=== PATIENT | male | born 1965 | race Caucasian/White ===

== ENCOUNTER 2017-06-26 13:28 | Inpatient (IN) ==
[2017-06-26] MEDS ORDERED: Naloxone 0.4 MG/ML INJ IVP PRN (16:10)
[2017-06-26] MEDS ORDERED: *HR* Morphine 2 MG/ML SYRINGE IVP PRN (16:10)
[2017-06-26] MEDS ORDERED: Nitroglycerin 0.4 MG TAB.SUBL SL PRN (16:14)
--- NOTE | 2017-06-26 16:21 | Internal Med History&Physical ---
Date of Encounter: 06/26/17 Time of Encounter: 16:16 Assessment and Plan (1) Chest pain Current visit: No Status: Acute 52/[place] for ECHO and cardiology consult Extensive cardiac history. See below regarding previous cardiac workup Admit as inpatient. Cycle troponin. Aspirin/metoprolol/Lipitor Echocardiogram. We need her records from the [facility]. Please call cardiology consult after the [facility] records are arrived as per the request from the [facility] Qualifiers: Chest pain type: unspecified Qualified Code(s): R07.9 - Chest pain, unspecified (2) Coronary artery disease Current visit: No Status: Acute Patient is known to have a coronary artery disease. Patient had a first cardiac catheterization in 2013. This cardiac catheterization was done in the [facility]. Patient's pier hand is Dr. Watters. Patient claims that he had him multiple cardiac catheterization after that. I have informed JUHI Valiente to get more reports thrombose the [facility]. Qualifiers: Coronary Disease-Associated Artery/Lesion type: [place] artery [place] vs. transplanted heart: [place] heart Associated angina: with stable angina Qualified Code(s): I25.118 - Atherosclerotic heart disease of [place] coronary artery with other forms of angina pectoris (3) Hypertension Current visit: No Status: Acute Blood pressure is within acceptable range. Patient is presently on lisinopril 10 mg. Qualifiers: Hypertension type: essential hypertension Qualified Code(s): I10 - Essential (primary) hypertension (4) Hyperlipidemia Current visit: No Status: Acute Lipitor 40 mg We will check lipids tomorrow morning Qualifiers: Hyperlipidemia type: unspecified Qualified Code(s): E78.5 - Hyperlipidemia , unspecified (5) DVT prophylaxis Current visit: Yes Status: Acute [place] Medical decision making: This patient has a moderate to severe risk of worsening in spite of being on appropriate medication due to the underlying complex comorbid issues. Internal Medicine - H&P: HPI Chief complaint: chest pain Admitted From: Hospital to Hospital Transfer Plans for Post Hospital Care: Home History of present illness: PCP: GRAHAM Ramirez. Brief PMH: CAD, HITN, Previous Stents and Multiple caths from Dr Fatima from [facility] HPI: Patient was complaining of persistent pressure-like chest pain for last 2 weeks. In last 4 days his pain was getting worse and that was the reason he was evaluated by [facility]. Patient was admitted as inpatient and noted that his 3 troponins were negative. Patient was still complaining on going Chest pain and SOB on minimal exertion. In spite of patient being in patient's status in the [facility]'s he was still complaining of ongoing chest pain/ shortness of breath. The [facility] does not have a cardiology service and echocardiogram facility over the weekend. The hospitalist from [facility] called and asked for further care as they do not have appropriate specialities to cover this issue. reason for transfer: Ongoing chest pain in a patient who has a previous coronary artery disease with multiple stents. Family history: Noncontributory Past Med Surg Social Fam HX - Past Medical History Medical history: myocardial infarction Psychiatric history: no psych history - Past Surgical History Surgical History: angioplasty/stent - Social History Smoking Status: Never smoker Smokeless Tobacco Status: No Alcohol use: none Drug use: none Internal Medicine - H&P: Meds Atorvastatin [Lipitor] 40 mg PO QAM 02/20/15 [History] Clopidogrel [Plavix] 75 mg PO QAM 02/20/15 [History] Cyclobenzaprine [Flexeril] 5 mg PO TID 02/20/15 [History] Isosorbide MONOnitrate (24 HR) [Imdur] 30 mg PO QAM 02/20/15 [History] Lisinopril [Zestril] 10 mg PO QPM 02/20/15 [History] Meclizine [Antivert] 12.5 mg PO TID 02/20/15 [History] Metoprolol [Lopressor] 37.5 mg PO BID 02/20/15 [History] Fluticasone Propionate Nasal [Flonase] 2 spray NS DAILY #1 bottle 02/21/15 [Rx] Lansoprazole [Prevacid] 30 mg PO QAM #30 capsule. 02/21/15 [Rx] Nitroglycerin 0.4 mg SL Q5MIN PRN #20 tab.subl 02/21/15 [Rx] 3 Allergy/AdvReac Type Severity Reaction Status Date / Time No Known Allergies Allergy Verified 02/20/15 16:22 All Systems PM: A 10-system review of systems was performed and is negative for pertinent findings except as documented above in the HPI. - Constitutional Constitutional: no chills, no fever(s), no night sweats - EENT Eyes: no change in vision, no discharge, no pain, no photophobia Ears: no ear discharge, no ear pain, no tinnitus Nose, mouth and throat: no dysphagia, no nasal discharge, no neck pain, no sore throat - Cardiovascular Cardiovascular ROS IM: chest pain, diaphoresis, palpitations, no dyspnea, no lightheadedness, no syncope - Respiratory Respiratory: no cough, no dyspnea, no wheezing, no excessive phlegm production - Gastrointestinal Gastrointestinal: no abdominal pain, no diarrhea, no hematemesis, no hematochezia, no melena, no nausea, no vomiting - Musculoskeletal Musculoskeletal ROS IM: no numbness, no tingling - Integumentary Integumentary IM: no rash, no unusual bruising - Neurological Neurological ROS: no confusion, no convulsions, no focal weakness, no numbness, no tingling, no tremor(s) - Hematologic/Lymphatic Hematologic/Lymphatic: no easy bruising - Constitutional Vitals: Temp Pulse Resp BP Pulse Ox 97.8 F 76 16 120/77 92 06/26/17 14:46 06/26/17 14:46 06/26/17 14:46 06/26/17 14:46 06/26/17 14:46 General appearance: Present: A&O X 3, pleasant, no acute distress, answers questions appropriately - Head Head exam: Present: atraumatic, normocephalic - Eye Eye exam: Present: PERRL, conjuntiva pink, sclera anicteric Pupils: Present: PERRL - Neck Neck exam general surgery: Present: supple, trachea midline. Absent: lymphadenopathy - Respiratory Respiratory exam: Present: CTAB. Absent: accessory muscle use, rales, rhonchi, wheezes - Cardiovascular Cardiovascular exam: Present: RRR, +S1, +S2. Absent: diastolic murmur, gallop, rubs, systolic murmur - GI/Abdominal GI/Abdominal exam: Present: normal bowel sounds, soft, no peritoneal signs. Absent: distended, tenderness - Extremities Exam Extremities exam: Present: warm, radial pulses palpable and symmetrical. Absent : calf tenderness, cyanotic, pedal edema - Neurological Exam Neurological exam: Present: CN II-XII intact, oriented X3, no focal deficits. Absent: pronater drift, facial droop, speech deficit - Skin Skin exam: Present: dry, intact
[2017-06-26 16:46] LABS: Basophils # 0.1 K/mcL (0.0-0.2); Basophils % 0.6 %; Eosinophils # 0.1 K/mcL (0.0-0.6); Eosinophils % 0.8 %; Hematocrit 39.2 % (37.5-50.1); Hemoglobin 13.3 g/dL (12.9-16.9); Immature Granulocytes % 0.5 % (0-4); Lymphocytes # 2.5 K/mcL (0.6-4.6); Lymphocytes % 29.3 %; Mean Corpuscular HGB Conc 33.9 g/dL (31.6-35.5); Mean Corpuscular Hemoglobin 31.7 pg (28.0-33.3); Mean Corpuscular Volume 93.6 fL (83.0-100.0); Mean Platelet Volume 11.6 fL (9.4-12.4); Monocytes # 0.6 K/mcL (0.0-1.3); Monocytes % 6.8 %; Neutrophils # 5.2 K/mcL (1.6-8.9); Platelet Count 175 K/mcL (140-400); Red Blood Count 4.19 M/mcL (4.19-5.50); Red Cell Distribution Width 12.6 % (11.5-14.5)
[2017-06-26 17:01] LABS: Alanine Aminotransferase 31 Units/L (7-52); Albumin/Globulin Ratio 1.5 (1.1-2.2); Alkaline Phosphatase 87 Units/L (34-104); Aspartate Amino Transferase 21 Units/L (13-39); BUN/Creatinine Ratio 18 (6-26); Bilirubin,Total 0.7 mg/dL (0.3-1.0); Blood Urea Nitrogen 17 mg/dL (6-20); Calcium 9.4 mg/dL (8.6-10.3); Carbon Dioxide 31 mEq/L (23-29); Chloride 105 mEq/L (98-107); Globulin 2.6 g/dL (2.4-3.5); Glucose 108 mg/dL (70-105); Osmolality,Calculated 292 (280-300); Sodium 140 mEq/L (136-145); Total Protein 6.6 g/dL (6.4-8.9); eGFR For African Americans > 60 (> 60); eGFR For Non-African Americans > 60 (> 60)
[2017-06-26] MEDS: Isosorbide MONOnitrate (24 HR) 30 MG TAB.ER.24H PO SCH (17:25)
[2017-06-26] MEDS: Lisinopril 20 MG TABLET PO SCH (17:26)
[2017-06-26] MEDS: Acetaminophen 325 MG TABLET PO PRN (23:16)
[2017-06-26] MEDS: *HR* Heparin 5,000 UNIT/ML VIAL SQ SCH (23:17)
[2017-06-27 05:50] LABS: Basophils % 0.5 %; Eosinophils % 0.4 %; Hematocrit 41.8 % (37.5-50.1); Hemoglobin 14.1 g/dL (12.9-16.9); Immature Granulocytes % 0.5 % (0-4); Lymphocytes # 0.7 K/mcL (0.6-4.6); Lymphocytes % 7.7 %; Mean Corpuscular HGB Conc 33.7 g/dL (31.6-35.5); Mean Corpuscular Hemoglobin 31.3 pg (28.0-33.3); Mean Corpuscular Volume 92.9 fL (83.0-100.0); Mean Platelet Volume 11.9 fL (9.4-12.4); Monocytes # 0.4 K/mcL (0.0-1.3); Monocytes % 4.6 %; Neutrophils # 7.3 K/mcL (1.6-8.9); Platelet Count 149 K/mcL (140-400); Red Cell Distribution Width 12.3 % (11.5-14.5); Segmented Neutrophils % 86.3 %
[2017-06-27 05:53] LABS: INR 1.1; Prothrombin Time 12.3 Seconds (9.4-12.1)
[2017-06-27 06:04] LABS: Alanine Aminotransferase 30 Units/L (7-52); Albumin/Globulin Ratio 1.5 (1.1-2.2); Alkaline Phosphatase 87 Units/L (34-104); Aspartate Amino Transferase 18 Units/L (13-39); BUN/Creatinine Ratio 16 (6-26); Bilirubin,Total 1.4 mg/dL (0.3-1.0); Blood Urea Nitrogen 16 mg/dL (6-20); Calcium 9.2 mg/dL (8.6-10.3); Carbon Dioxide 30 mEq/L (23-29); Chloride 103 mEq/L (98-107); Chol/HDL Ratio 3.3 (0-4.9); Cholesterol 163 mg/dL (< 200); Globulin 2.6 g/dL (2.4-3.5); Glucose 101 mg/dL (70-105); HDL Cholesterol 49 mg/dL (40-59); LDL Cholesterol,Calculated 88 mg/dL (0-99); Magnesium 1.7 mg/dL (1.6-2.6); Osmolality,Calculated 295 (280-300); Phosphorous 3.2 mg/dL (2.7-4.5); Potassium 4.2 mEq/L (3.5-5.1); Sodium 142 mEq/L (136-145); Total Protein 6.6 g/dL (6.4-8.9); Triglycerides 132 mg/dL (< 150); eGFR For African Americans > 60 (> 60); eGFR For Non-African Americans > 60 (> 60)
[2017-06-27] MEDS: *HR* Heparin 5,000 UNIT/ML VIAL SQ SCH ×2 (08:38→15:20)
[2017-06-27] MEDS: Acetaminophen 325 MG TABLET PO PRN ×3 (08:39→21:34)
[2017-06-27] MEDS: Isosorbide MONOnitrate (24 HR) 30 MG TAB.ER.24H PO SCH (08:41)
[2017-06-27 10:09] LABS: Adenovirus Not Detected (Not Detect); Coronavirus 229E Not Detected (Not Detect); Coronavirus HKU1 Not Detected (Not Detect); Coronavirus NL63 Not Detected (Not Detect)
[2017-06-27 10:10] LABS: Bordetella Pertussis Not Detected (Not Detect); Chlamydophila pneumoniae Not Detected (Not Detect); Coronavirus OC43 Not Detected (Not Detect); Human Metapneumovirus Not Detected (Not Detect); Human Rhinovirus/Enterovirus Not Detected (Not Detect); Influenza A Subtype 2009 H1 Not Detected (Not Detect); Influenza A Untypeable Not Detected (Not Detect); Influenza B Not Detected (Not Detect); Mycoplasma pneumoniae Not Detected (Not Detect); Parainfluenza Virus 1 Not Detected (Not Detect); Parainfluenza Virus 2 Not Detected (Not Detect); Parainfluenza Virus 3 Not Detected (Not Detect); Parainfluenza Virus 4 Not Detected (Not Detect); Respiratory Syncytial Virus Not Detected (Not Detect)
[2017-06-27] MEDS ORDERED: Ondansetron 4 MG/2 ML VIAL IVP PRN ×2 (14:37→15:02)
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
[2017-06-27] MEDS: Lisinopril 20 MG TABLET PO SCH (17:55)
[2017-06-27] MEDS ORDERED: Ondansetron 4 MG/2 ML VIAL IVP SCH (18:00)
[2017-06-28] MEDS: *HR* Heparin 5,000 UNIT/ML VIAL SQ SCH ×4 (00:22→23:29)
[2017-06-28 05:11] LABS: Basophils % 0.8 %; Eosinophils % 0.6 %; Hematocrit 43.1 % (37.5-50.1); Hemoglobin 14.3 g/dL (12.9-16.9); Immature Granulocytes % 0.6 % (0-4); Lymphocytes # 0.9 K/mcL (0.6-4.6); Mean Corpuscular HGB Conc 33.2 g/dL (31.6-35.5); Mean Corpuscular Hemoglobin 30.9 pg (28.0-33.3); Mean Corpuscular Volume 93.1 fL (83.0-100.0); Mean Platelet Volume 10.8 fL (9.4-12.4); Monocytes # 0.6 K/mcL (0.0-1.3); Monocytes % 11.9 %; Neutrophils # 3.3 K/mcL (1.6-8.9); Platelet Count 132 K/mcL (140-400); Red Blood Count 4.63 M/mcL (4.19-5.50); Red Cell Distribution Width 12.7 % (11.5-14.5); Segmented Neutrophils % 68.1 %
[2017-06-28 05:24] LABS: BUN/Creatinine Ratio 12 (6-26); Blood Urea Nitrogen 15 mg/dL (6-20); Calcium 9.1 mg/dL (8.6-10.3); Carbon Dioxide 32 mEq/L (23-29); Chloride 101 mEq/L (98-107); Glucose 132 mg/dL (70-105); Osmolality,Calculated 289 (280-300); Potassium 4.5 mEq/L (3.5-5.1); Sodium 138 mEq/L (136-145); eGFR For African Americans > 60 (> 60); eGFR For Non-African Americans > 60 (> 60)
[2017-06-28] MEDS ORDERED: Regadenoson 0.4 MG/5 ML SYRINGE IVP ONE (06:04)
[2017-06-28] MEDS: Isosorbide MONOnitrate (24 HR) 30 MG TAB.ER.24H PO SCH (09:14)
[2017-06-28] MEDS: Acetaminophen 325 MG TABLET PO PRN ×2 (12:04→20:21)
--- NOTE | 2017-06-28 13:39 | Cardiology Consult Note ---
Date of Encounter: 06/28/17 Time of Encounter: 13:00 Assessment and Plan (1) Chest pain Current Visit: No Status: Acute Per cardiology: -Patient reports intermittent typically non-exertional chest pain. States pain different from previous DE. -Denies current chest pain. -Troponins negative x3 [facility] and negative x3[facility]. -KNown history of CAD. States on previous LHC there was a blockage that was not amendable to PCI, does not know which artery. -ALso reports increased shortness of breath. -TTE with LVEF 55%, no segmental wall motion abnormalities. -Stress today with area of previous infarct noted in basal-mid inferior wall. No evidence of ischemia noted. -Awaiting records from [facility]. -Will increase imdur. Qualifiers: Chest pain type: unspecified Qualified Code(s): R07.9 - Chest pain, unspecified (2) Coronary artery disease Current Visit: No Status: Chronic Per cardiology: -Known history of CAD. -Previous LHC at [facility], awaiting records. -ON statin, beta brian, and plavix. -Awaiting records from [facility]. -Will start asa. Qualifiers: Coronary Disease-Associated Artery/Lesion type: [place] artery [place] vs. transplanted heart: [place] heart Associated angina: with unspecified angina Qualified Code(s): I25.119 - Atherosclerotic heart disease of [place] coronary artery with unspecified angina pectoris Discussion w patient/family: The assessment and plan as outlined above was discussed with the patient and/or family members who expressed understanding and agreement. All questions were answered. Thank you for involving us in the care of your patient. Please call with any questions. Discussed and reviewed with . History of Present Illness Consult date: 06/28/17 Requesting physician: Judy Abad Consult reason: chest pain, history of CAD Chief complaint: chest pain, shortness of breath History of present illness: Mr. Najera is a 52 year old male with a relevant past medical history of DE, CAD s/p multiple PCI, HTN, hyperlipidemia. Patient presented to [facility] for worsening shortness of breath and chest pain. Patient was transferred to [facility]. Patient states for the past couple of months he has noticed intermittent shortness of breath with exertion. Patient also states he has had chest pain that typically occurs at rest, however has occurred with exertion. Patient denies aggravating or alleviating factors. Patient states that prior to his first DE, he had noticed increased shortness of breath. Patient states current chest pain is different that previous chest pain. Patient is unsure where stents were placed. Also, patient reports that during his last LHC, there was an area that was not amedable to PCI. Patient denies current chest pain. States breathing is ok right now, comfortable on room air. Of note, patient does report fever and chills yesterday, denies today. Past Med Surg Social Fam HX - Past Medical History Attestation: Yes The following information was validated with the patient. Source: patient, obtained from family Medical history: hyperlipidemia, hypertension, myocardial infarction Psychiatric history: no psych history - Past Surgical History Surgical History: angioplasty/stent - Social History Smoking Status: Never smoker Smokeless Tobacco Status: No Alcohol use: none Drug use: none - Family History Mother Living Status: Hx Family Endocrine Disorder: Yes (DM) Father Living Status: Still Living Hx Family Cardiac Disorders: Yes (DE) Hx Family Cancer: Yes (prostate, lung, melanoma) Medications and Allergies Atorvastatin [Lipitor] 40 mg PO QAM 02/20/15 [History] Isosorbide MONOnitrate (24 HR) [Imdur] 30 mg PO QAM 02/20/15 [History] Lisinopril [Zestril] 10 mg PO QPM 02/20/15 [History] Meclizine [Antivert] 12.5 mg PO TID 02/20/15 [History] Metoprolol [Lopressor] 37.5 mg PO BID 02/20/15 [History] Fluticasone Propionate Nasal [Flonase] 2 spray NS DAILY #1 bottle 02/21/15 [Rx] Lansoprazole [Prevacid] 30 mg PO QAM #30 capsule.dr 02/21/15 [Rx] Nitroglycerin 0.4 mg SL Q5MIN PRN #20 tab.subl 02/21/15 [Rx] 3 Allergy/AdvReac Type Severity Reaction Status Date / Time No Known Allergies Allergy Verified 02/20/15 16:22 All Systems Review: A 10-system review of systems was performed and is negative for pertinent findings except as documented above in the HPI. - Cardiovascular Cardiovascular: as per HPI, chest pain at rest, dyspnea on exertion Physical Examination Vital Signs, Last 4 Hours Temp Pulse Resp BP Pulse Ox 06/28/17 10:55 98.4 F 85 20 109/70 96 General: Conversant, No Apparent Distress HEENT: Atraumatic, Normocephaly, Mucus Membranes Moist Neck: No JVD, Normal carotid pulses Cardiac: Reg Rate and Rhythm, Normal S1 and S2, No Murmur Lungs: Normal Breath Sounds, No Wheeze, Rales, Rhonchi Neuro: Alert and responsive, No focal deficits noted Abdomen: Soft, Non-Tender Skin: No rashes noted on visualized skin Musculoskeletal: No Chest Wall Tenderness Extremities: No Clubbing, No Cyanosis, No Edema, Normal Pulses Results 06/28/17 04:52 06/28/17 04:52 Lab Results Active Medications Acetaminophen (Tylenol) 650 mg PO Q6HR PRN PRN Reason: Headache Stop: 12/26/17 22:13 Last Admin: 06/28/17 12:04 Dose: 650 mg Atorvastatin Calcium (Lipitor) 40 mg PO [facility] Stop: 12/27/17 09:01 Last Admin: 06/28/17 09:15 Dose: 40 mg Clopidogrel [facility]) [facility] Stop: 12/27/17 09:01 Last Admin: 06/28/17 09:14 Dose: 75 mg Cyclobenzaprine HCl (Flexeril) 5 mg PO TID [facility] Stop: 12/26/17 21:01 Last Admin: 06/28/17 09:15 Dose: 5 mg Heparin Sodium (Porcine) (Heparin) 5,000 unit SQ Q8HR [facility] Stop: 12/27/17 00:01 Last Admin: 06/28/17 09:15 Dose: 5,000 unit Isosorbide Mononitrate (Imdur) [facility] Stop: 12/26/17 16:16 Last Admin: 06/28/17 09:14 Dose: 30 mg Lansoprazole (Prevacid) [facility] PRN Reason: Protocol Stop: 12/26/17 16:16 Last Admin: 06/28/17 09:15 Dose: 30 mg Lisinopril (Zestril) 10 mg PO QPM [facility] PRN Reason: Protocol Stop: 12/26/17 18:01 Last Admin: 06/27/17 17:55 Dose: 10 mg Meclizine HCl (Antivert) 12.5 mg PO TID [facility] Stop: 12/26/17 21:01 Last Admin: 06/28/17 09:14 Dose: 12.5 mg Metoprolol Tartrate (Lopressor) 37.5 mg PO BID NOE Stop: 12/26/17 21:01 Last Admin: 06/28/17 09:14 Dose: 37.5 mg Morphine Sulfate (Morphine Sulfate) 2 mg IVP Q4HR PRN PRN Reason: Severe Pain (7-10) Stop: 12/26/17 16:11 Naloxone HCl (Narcan) 0.4 mg IVP Q2MIN PRN PRN Reason: Opioid Reversal Stop: 12/26/17 16:11 Nitroglycerin (Nitroglycerin) 0.4 mg SL Q5MIN PRN PRN Reason: Chest Pain Stop: 12/26/17 16:15 Ondansetron HCl (Zofran) 4 mg IVP Q6HR PRN; Protocol PRN Reason: Nausea Stop: 12/27/17 18:01 Last Admin: 06/27/17 15:20 Dose: 4 mg Laboratory Tests 06/26/17 06/26/17 06/27/17 16:23 21:48 04:18 Hgb Creatinine Troponin I < 0.03 < 0.03 < 0.03 06/28/17 06/28/17 04:52 04:52 Hgb 14.3 Creatinine 1.24 Troponin I - Imaging and Cardiology Chest Xray: report reviewed Stress Test: report reviewed Echo: report reviewed - EKG Interpretation EKG results cardiology: personally reviewed (ECG with SR, HR 69.), other ( Telemetry reviewed with average HR previous 12 hours noted to be 74, SR. PVCs noted.) Consult Discharge Plan - Plan [facility]errals: [facility] [Primary Care Provider] -
[2017-06-28] MEDS: Aspirin Enteric Coated 81 MG Tablet PO SCH (15:17)
[2017-06-28] MEDS: Lisinopril 20 MG TABLET PO SCH (17:37)
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
[2017-06-29 04:19] LABS: Basophils % 0.8 %; Eosinophils # 0.1 K/mcL (0.0-0.6); Eosinophils % 2.2 %; Hematocrit 40.6 % (37.5-50.1); Hemoglobin 13.7 g/dL (12.9-16.9); Immature Granulocytes % 0.5 % (0-4); Lymphocytes # 1.1 K/mcL (0.6-4.6); Lymphocytes % 30.7 %; Mean Corpuscular HGB Conc 33.7 g/dL (31.6-35.5); Mean Corpuscular Hemoglobin 31.3 pg (28.0-33.3); Mean Corpuscular Volume 92.7 fL (83.0-100.0); Mean Platelet Volume 11.4 fL (9.4-12.4); Monocytes # 0.6 K/mcL (0.0-1.3); Monocytes % 15.2 %; Neutrophils # 1.9 K/mcL (1.6-8.9); Platelet Count 128 K/mcL (140-400); Red Blood Count 4.38 M/mcL (4.19-5.50); Red Cell Distribution Width 12.5 % (11.5-14.5); Segmented Neutrophils % 50.6 %
[2017-06-29 04:48] LABS: BUN/Creatinine Ratio 13 (6-26); Blood Urea Nitrogen 14 mg/dL (6-20); Calcium 8.9 mg/dL (8.6-10.3); Carbon Dioxide 33 mEq/L (23-29); Chloride 103 mEq/L (98-107); Glucose 132 mg/dL (70-105); Osmolality,Calculated 292 (280-300); Potassium 4.2 mEq/L (3.5-5.1); Sodium 140 mEq/L (136-145); eGFR For African Americans > 60 (> 60); eGFR For Non-African Americans > 60 (> 60)
[2017-06-29 07:30] VITALS: BP 118/83
[2017-06-29] MEDS: Aspirin Enteric Coated 81 MG Tablet PO SCH (08:48)
[2017-06-29] MEDS: *HR* Heparin 5,000 UNIT/ML VIAL SQ SCH (08:48)
[2017-06-29] MEDS ORDERED: Isosorbide MONOnitrate (24 HR) 60 MG TAB.ER.24H PO SCH (09:00)
--- NOTE | 2017-06-29 10:03 | Discharge Summary ---
Date of Encounter: 06/29/17 Time of Encounter: 09:59 - Discharge Diagnosis (1) Chest pain Priority: Primary Status: Acute Qualifiers: Chest pain type: unspecified Qualified Code(s): R07.9 - Chest pain, unspecified (2) Coronary artery disease Priority: Secondary Status: Chronic Qualifiers: Coronary Disease-Associated Artery/Lesion type: [place] artery [place] vs. transplanted heart: [place] heart Associated angina: with unspecified angina Qualified Code(s): I25.119 - Atherosclerotic heart disease of [place] coronary artery with unspecified angina pectoris (3) Hypertension Priority: Secondary Status: Acute Qualifiers: Hypertension type: essential hypertension Qualified Code(s): I10 - Essential (primary) hypertension (4) Hyperlipidemia Priority: Secondary Status: Acute Qualifiers: Hyperlipidemia type: unspecified Qualified Code(s): E78.5 - Hyperlipidemia , unspecified (5) DVT prophylaxis Priority: Secondary Status: Acute - Discharge Medications Prescriptions: Aspirin Enteric Coated [Aspirin EC] 81 mg PO DAILY #30 tablet. Clopidogrel [Plavix] 75 mg PO QAM #30 tablet Isosorbide MONOnitrate (24 HR) [Imdur] 60 mg PO DAILY #30 tab.er.24h Home Medications: Atorvastatin [Lipitor] 40 mg PO QAM 02/20/15 [History] Lisinopril [Zestril] 10 mg PO QPM 02/20/15 [History] Meclizine [Antivert] 12.5 mg PO TID 02/20/15 [History] Metoprolol [Lopressor] 37.5 mg PO BID 02/20/15 [History] Fluticasone Propionate Nasal [Flonase] 2 spray NS DAILY #1 bottle 02/21/15 [Rx] Lansoprazole [Prevacid] 30 mg PO QAM #30 capsule. 02/21/15 [Rx] Nitroglycerin 0.4 mg SL Q5MIN PRN #20 tab.subl 02/21/15 [Rx] Aspirin Enteric Coated [Aspirin EC] 81 mg PO DAILY #30 tablet. 06/29/17 [Rx] Clopidogrel [Plavix] 75 mg PO QAM #30 tablet 06/29/17 [Rx] Cyclobenzaprine [Flexeril] 10 mg PO TID tablet 06/29/17 [Rx] Isosorbide MONOnitrate (24 HR) [Imdur] 60 mg PO DAILY #30 tab.er.24h 06/29/17 [ Rx] Allergies/Adverse Reactions: 3 Allergy/AdvReac Type Severity Reaction Status Date / Time No Known Allergies Allergy Verified 02/20/15 16:22 Procedures/tests Complete & Pending: Procedures Performed prior 72 hours Category Date Time Status NM jacquelyn perf SPECT multi [NM] Routine Exams 06/27/17 12:22 Taken EV echocardiogram Routine Y 06/26/17 16:13 Completed SP pharm nuclear stress Routine Y 06/28/17 07:30 Completed Date of admission: 06/26/17 17:14 Primary care physician: PCP [place] Consults: 06/28/17 10:41 Consult to Cardiology [CONS] Routine Comment: Consulting Provider: Cardiology Ariana Reason for Consult: Chest pain, CAD, multiple heart cath in past. 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 In last 4 days his pain was getting worse and that was the reason he was evaluated by Ashley STEVENSON. Patient was admitted as inpatient and noted that his 3 troponins were negative. Patient was still complaining on going Chest pain and SOB on minimal exertion. In spite of patient being in patient's status in the [facility]'s he was still complaining of ongoing chest pain/ shortness of breath. The [facility] does not have a cardiology service and echocardiogram facility over the weekend. The hospitalist from [facility] called and asked for further care as they do not have appropriate specialities to cover this issue. Reason for transfer: Ongoing chest pain in a patient who has a previous coronary artery disease with multiple stents. Patient was admitted for further workup. Cycled troponin were negative, EKG unreamarkable. TTE showed normal LVEF, normal structure and function. Patient had nuclear stress test done that was negative for ischemia. Did note an show infarct of basal-mid inferior wall on impression. Cardiology was consulted. He had aspirin added to his current Plavix home medications. Also had is home Imdur increased from 30 mg daily to 60 mg daily. Patient remained without chest pain during his stay. Cycled cardiac enzymes were negative. He was discharged home in stable condition. - Time Spent with Patient Total time spent providing and/or coordinating discharge services: - Constitutional Vitals: Temp Pulse Resp BP Pulse Ox 98.2 F 77 15 118/83 95 06/29/17 07:29 06/29/17 07:29 06/29/17 07:29 06/29/17 07:29 06/29/17 07:29 General appearance: Present: A&O X 3, pleasant, no acute distress, answers questions appropriately - Head Head exam: Present: atraumatic, normocephalic - Eye Eye exam: Present: PERRL, conjuntiva pink, sclera anicteric Pupils: Present: PERRL - Neck Neck exam general surgery: Present: supple, trachea midline. Absent: lymphadenopathy - Respiratory Respiratory exam: Present: CTAB. Absent: accessory muscle use, rales, rhonchi, wheezes - Cardiovascular Cardiovascular exam: Present: RRR, +S1, +S2. Absent: diastolic murmur, gallop, rubs, systolic murmur - GI/Abdominal GI/Abdominal exam: Present: normal bowel sounds, soft, no peritoneal signs. Absent: distended, tenderness - Extremities Exam Extremities exam: Present: warm, radial pulses palpable and symmetrical. Absent : calf tenderness, cyanotic, pedal edema - Neurological Exam Neurological exam: Present: CN II-XII intact, oriented X3, no focal deficits. Absent: pronater drift, facial droop, speech deficit - Skin Skin exam: Present: dry, intact
== END 2017-06-29 12:00 | disposition home or self-care (01) | DRG 313 ==
LOC: 3BNU → SUATTDRO 17:14
PROVIDERS: ADMIT Internal Medicine; ATTEND Student in an Organized Health Care Education/Training Program